=== PATIENT | female | born 1985 | race Asian ===

== ENCOUNTER 2024-06-10 06:41 | Observation (INO) | payer BC, SELFPAY ==
[2024-06-10 06:56] VITALS: BP 103/52; BMI 26.4
[2024-06-10] MEDS: LR 1000 IV ×2 (07:37→14:00)
[2024-06-10 07:51] LABS: Urine Albumin Negative (Neg - Trace); Urine Bilirubin Negative (Negative); Urine Character Clear (Clear); Urine Color Yellow; Urine Glucose Negative (Negative); Urine Ketone Negative (Negative); Urine Leukocyte Negative (Negative); Urine Nitrite Negative (Negative); Urine Occult Blood Negative (Negative); Urine Specific Gravity 1.005 (<1.030); Urine Urobilinogen Negative (Neg - 1+)
[2024-06-10 07:54] LABS: Hematocrit 27.6 % (37.0-47.0); Hemoglobin 9.8 g/dL (12.0-16.0); Mean Corp Hgb Conc. 35.5 g/dL (33.0-37.0); Mean Corpuscular Hgb 31.2 pg (27.0-31.0); Mean Corpuscular Volume 87.9 fL (81.0-99.0); Mean Platelet Volume 9.7 fL (7.4-10.4); Platelet Count 261 10^3/uL (130-400); Red Blood Cell Count 3.14 10^6/uL (4.20-5.40); Red Cell Dist. Width 12.8 % (11.5-14.5)
[2024-06-10] MEDS: CELESTONE SOLUSPAN 2 MG IM (09:35)
[2024-06-10 09:51] LABS: Amphetamines Negative (Negative); Barbiturates Negative (Negative); Benzodiazepines Negative (Negative); Buprenorphine Negative (Negative); Cocaine Negative (Negative); Marijuana Negative (Negative); Methadone Negative (Negative); Methamphetamines Negative (Negative); Opiates Negative (Negative); Phencyclidine Negative (Negative); Tricyclic Antidepressants Negative (Negative)
[2024-06-10 09:51] LABS: INR 0.95; PT 12.6 Sec (11.4-14.6)
[2024-06-10 09:52] LABS: APTT 28.5 Sec (23.4-35.0)
[2024-06-10 09:53] LABS: ALT (SGPT) 14 U/L (0-35); AST (SGOT) 22 U/L (14-36); Albumin 3.7 g/dl (3.5-5.0); Alkaline Phosphatase 115 U/L (38-126); Blood Urea Nitrogen 3 mg/dl (7-17); Calcium 8.8 mg/dl (8.4-10.2); Carbon Dioxide 23 mmol/L (22-30); Chloride 104 mmol/L (98-107); Estimated Creatinine Clearance 105 ml/min; Glucose 98 mg/dl (70-99); Potassium 3.6 mmol/L (3.5-5.1); Sodium 134 mmol/L (135-145); Total Bilirubin 0.3 mg/dl (0.2-1.3); Total Protein 6.1 g/dl (6.3-8.2); eGFR > 60.00
[2024-06-10] MEDS: TYLENOL 1000 MG PO (10:00)
[2024-06-10 10:26] LABS: Fibrinogen 571 MG/DL (199-459)
[2024-06-10] MEDS: FLUSH (NSS) 1 FLUSH IV (10:58)
[2024-06-10] MEDS: MORPHINE SULFATE 2 MG IV (10:58)
[2024-06-10] MEDS: MAGNESIUM SULFATE 100 IV (14:00)
[2024-06-10] MEDS: MAGNESIUM SULFATE 40 GRAM 1000 IV (14:26)
[2024-06-10 15:43] LABS: Hematocrit 25.4 % (37.0-47.0); Mean Corp Hgb Conc. 35.4 g/dL (33.0-37.0); Mean Corpuscular Hgb 31.3 pg (27.0-31.0); Mean Corpuscular Volume 88.2 fL (81.0-99.0); Mean Platelet Volume 9.5 fL (7.4-10.4); Platelet Count 231 10^3/uL (130-400); Red Blood Cell Count 2.88 10^6/uL (4.20-5.40); Red Cell Dist. Width 12.9 % (11.5-14.5); White Blood Cell Count 10.9 10^3/uL (4.8-10.8)
[2024-06-10 15:49] LABS: INR 1.01; PT 13.3 Sec (11.4-14.6)
[2024-06-10 15:50] LABS: Fibrinogen 539 MG/DL (199-459)
== END 2024-06-10 18:56 | disposition short-term general hospital (02) ==
LOC: LDRP 06:41
PROVIDERS: Obstetrics & Gynecology; ADMITTING PHYSICIAN Obstetrics & Gynecology; FAMILY PHYSICIAN Family Medicine
DX: R10.9 Unspecified abdominal pain (principal); O26.893 Other specified pregnancy related conditions, third trimester; Z3A.31 31 weeks gestation of pregnancy; O32.1XX0 Maternal care for breech presentation, not applicable or unspecified
CPT/HCPCS: 76705; 76815; 76816; 76817; 80053; 80306; 81003; 82731; 85027; 85384; 85460; 85610; 85730; 86850; 86900; 86901; G0378

== ENCOUNTER 2024-06-14 20:38 | Observation (INO) | payer BC, SELFPAY ==
[2024-06-14 21:13] VITALS: BMI 25.8
[2024-06-14 21:30] LABS: Hematocrit 24.7 % (37.0-47.0); Hemoglobin 8.9 g/dL (12.0-16.0); Mean Corpuscular Hgb 31.3 pg (27.0-31.0); Mean Platelet Volume 9.2 fL (7.4-10.4); Platelet Count 260 10^3/uL (130-400); Red Blood Cell Count 2.84 10^6/uL (4.20-5.40); Red Cell Dist. Width 12.7 % (11.5-14.5); White Blood Cell Count 5.2 10^3/uL (4.8-10.8)
[2024-06-14 21:42] LABS: ALT (SGPT) 34 U/L (0-35); AST (SGOT) 38 U/L (14-36); Albumin 3.5 g/dl (3.5-5.0); Alkaline Phosphatase 147 U/L (38-126); Blood Urea Nitrogen 6 mg/dl (7-17); Calcium 8.9 mg/dl (8.4-10.2); Carbon Dioxide 23 mmol/L (22-30); Chloride 105 mmol/L (98-107); Estimated Creatinine Clearance 104 ml/min; Glucose 107 mg/dl (70-99); Potassium 3.6 mmol/L (3.5-5.1); Sodium 132 mmol/L (135-145); Total Bilirubin 0.2 mg/dl (0.2-1.3); eGFR > 60.00
[2024-06-14] MEDS: REGLAN 10 MG IV (21:42)
[2024-06-14] MEDS: BENADRYL 25 MG IV (21:44)
[2024-06-14] MEDS: LR 1000 IV (21:45)
[2024-06-14 21:47] LABS: Urine Albumin Negative (Neg - Trace); Urine Bilirubin Negative (Negative); Urine Character Slightly Cloudy (Clear); Urine Color Yellow; Urine Glucose Negative (Negative); Urine Ketone Negative (Negative); Urine Leukocyte Negative (Negative); Urine Nitrite Negative (Negative); Urine Occult Blood Negative (Negative); Urine Specific Gravity 1.005 (<1.030); Urine Urobilinogen Negative (Neg - 1+)
[2024-06-14 22:00] LABS: COVID-19 Antigen Negative (Negative)
[2024-06-14 22:02] LABS: Protein/creatinine Ratio 0.8; Urine Protein 21 mg/dl
[2024-06-14 22:22] VITALS: BP 95/60
[2024-06-15] MEDS: LR 1000 IV ×2 (00:30→07:03)
[2024-06-15 05:41] LABS: ALT (SGPT) 28 U/L (0-35); AST (SGOT) 30 U/L (14-36)
[2024-06-15] MEDS: BENADRYL 25 MG IV (07:04)
[2024-06-15] MEDS: REGLAN 10 MG IV (07:04)
[2024-06-15] MEDS: FEOSOL 325 MG PO (08:00)
[2024-06-15 08:20] LABS: Iron 48 ug/dl (37-170)
[2024-06-15 08:29] LABS: Percent Saturation 12 % (20-50); Total Iron Binding Capacity 387 ug/dl (265-497)
--- NOTE | 2024-06-15 08:45 | CON.NEURO4 ---
Consultation - Neurology 4
-
CONSULTING PHYSICIAN: Freedom Mckeon
REFERRING PHYSICIAN: OB-STATE HISTORICAL SOCIETY DIRECTOR
DICTATED BY: Freedom Mckeon
DATE/TIME OF REQUEST: 06/15/24
DATE/TIME OF CONSULTATION: 06/15/24
Reason for Consultation: Headache
History of Present Illness:
Patient is a right handed 38-year-old woman at 31 weeks who presents to hospital due to headache which been present since this 06/13 on awakening.
Patient reports that this was at first a throbbing headache on the left side and she took Tylenol about 4 times a day on Saturday and Saturday had also been taking some Tylenol earlier in the week for some abdominal pains. She has had no recent head
or neck trauma. She did note some significant photophobia throughout the weekend. She did not have any other vision changes including any visual spots or color change or visual aura, nausea vomiting or phonophobia.
No recent sick contacts fevers, outdoor exposures bug bites or rashes.
She drinks about 1 cup of coffee per day.
She was given dose of Benadryl and Reglan twice now with some relief although headache has not completely abated she still has a dull persistent pain and also some instances of short lasting zap like pain which can happen bifrontally.
Relates that in the past she has relatively infrequent headaches where she will usually need to lay down in a dark room for an hour or 2, does not have accompanying nausea or vomiting or significant phonophobia or vision changes with these headaches.
So far her has been unremarkable.
Past Medical History: History of Suboxone use off for several years
Surgical History: Hernia repair, breast implants
Family History: No family history of migraines
Social History: Works as speech pathologist, lives with spouse and 1 child, no tobacco or alcohol, about 1 cup of coffee a day
Allergies: No known drug allergies
Review of Symptoms:
Patient denies any fever, chest pain, shortness of breath, GI or symptoms. Positive for headache.
Physical Exam:
Well-appearing young middle-aged woman in no distress no signs of head or neck trauma eyes are clear oropharynx is clear neck with no meningismus and full range of motion no tenderness to the scalp temporal areas or cervical spine, heart rate
regular breathing unlabored abdomen gravid, nontender, no lower extremity edema or rashes seen
Neurologic Examination:
The patient is awake, alert and oriented x 3. She is able to follow commands and answer questions appropriately. There is no aphasia or dysarthria. On cranial nerve assessment, pupils are 3 mm bilateral, round and reactive to light and
accommodation. Visual borja are full. No papilledema on fundoscopy. Extraocular movements are intact. Facial sensations are intact and bilaterally symmetrical, there is no facial asymmetry. Hearing is intact bilaterally to normal conversation
volume. Tongue palate and uvula are midline. Sternocleidomastoid strengths are full bilaterally. Motor strengths are 5/5 bilateral upper and lower extremities on medical research [place] scale. There is no drift or involuntary movement noted. Deep
tendon reflexes are 2+ bilateral upper and lower extremities and Babinski is absent bilaterally. Sensations of pain, touch, temperature and vibration are intact and bilaterally symmetrical. There was no extinction noted on double simultaneous
stimulation. Coordination is intact by finger to nose bilaterally.
Neuro Imaging: MRI pending
Impressions
1. Most likely a more severe and long-lasting migraine. In context of other considersations to keep in mind are venous sinus thrombosis, unlikely to be pre-eclampsia with normal BP's even with proteinuria seen. Normal neurologic
examination with no signs suggestive of ischemic stroke by history or exam.
2. Patient with uncomplicated so far at 31 weeks currently
3. History of infrequent mild migraine headaches without aura at baseline
Recommendations:
1. Although suspicion for other concerning etiologies of her headache is low I would still check an MRI of the brain, MRA of the head and neck and MRV without contrast given she has not had a long lasting headache like this previously in addition
to currently which broadens possible causes
2. Would give one dose 50 mg sumatriptan now and then again in 2 hours if headache still present, in general sumatriptan has good safety record and is well studied in patients with migraine
3. Tylenol is acceptable for headache but has not been very helpful
4. Small dose caffeine this morning may help
5. Otherwise conservative measures or rest, head/cold pack for headache
Discussed patient care with: Patient, OB physician
[2024-06-15 08:56] LABS: Ferritin 19.5 ng/ml (6.24-137)
[2024-06-15] MEDS: IMITREX 50 MG PO (09:58)
[2024-06-15] MEDS: HYDROCORTISONE 2.5% CREAM 1 APPLIC TOPICAL (20:32)
[2024-06-16] MEDS: FEOSOL PO ×2 (08:21→08:22)
[2024-06-16 11:37] LABS: 24 Hour Urine Total Volume 6400 ml
[2024-06-16 12:01] LABS: 24 Hour Urine Creatinine 0.659 gm/day (0.8-1.8); Urine Protein 16 mg/dl (0-12)
[2024-06-16 15:27] LABS: Transferrin 303 mg/dL (200-360)
== END 2024-06-16 13:30 | disposition home or self-care (01) ==
LOC: LDRP 20:38
PROVIDERS: ADMITTING PHYSICIAN Obstetrics & Gynecology; CONSULT PHYSICIAN Student in an Organized Health Care Education/Training Program
DX: R51.9 Headache, unspecified (principal); O99.013 Anemia complicating pregnancy, third trimester; D50.9 Iron deficiency anemia, unspecified; R19.7 Diarrhea, unspecified; R50.9 Fever, unspecified; O09.523 Supervision of elderly multigravida, third trimester; Z3A.31 31 weeks gestation of pregnancy; O12.13 Gestational proteinuria, third trimester; R11.0 Nausea; F11.21 Opioid dependence, in remission; Z98.82 Breast implant status; Z11.52 Encounter for screening for COVID-19
CPT/HCPCS: 70544; 70551; 80053; 81003; 81050; 82570; 82728; 83540; 83550; 84156; 84450; 84460; 84466; 85027; 87811

== ENCOUNTER 2024-08-02 02:10 | Inpatient (IN) | payer BC, SELFPAY ==
[2024-08-02] VITALS (14 sets, daily range): BP systolic 62–130; BP diastolic 37–59; BMI 27.5
[2024-08-02] MEDS: LR 1000 IV ×2 (02:30→03:41)
[2024-08-02] MEDS: PENICILLIN 110 UNITS IV (02:58)
[2024-08-02 03:04] LABS: % Basophils 0.3 % (0-2); % Eosinophils 0.3 % (0-6); % Immature Granulocytes 0.4 % (0-0.5); % Lymphocytes 24.3 % (20.5-51.1); % Monocytes 8.6 % (1.7-9.3); % Neutrophils 66.1 % (42.2-75.2); Absolute Lymphocytes 1.7 10^3/uL (1.2-3.4); Absolute Monocytes 0.6 10^3/uL (0.1-0.6); Absolute Neutrophils 4.7 10^3/uL (1.4-6.5); Hematocrit 30.8 % (37.0-47.0); Hemoglobin 10.9 g/dL (12.0-16.0); Mean Corp Hgb Conc. 35.4 g/dL (33.0-37.0); Mean Corpuscular Hgb 31.3 pg (27.0-31.0); Mean Corpuscular Volume 88.5 fL (81.0-99.0); Mean Platelet Volume 10.3 fL (7.4-10.4); Nucleated Red Blood Cells % 0 %; Platelet Count 221 10^3/uL (130-400); Red Blood Cell Count 3.48 10^6/uL (4.20-5.40); Red Cell Dist. Width 14.1 % (11.5-14.5); White Blood Cell Count 7.1 10^3/uL (4.8-10.8)
[2024-08-02] MEDS: SUBLIMAZE 100 MCG EPIDURAL (03:23)
[2024-08-02] MEDS: FENTANYL/BUPIVACAINE 100 EPIDURAL (03:24)
[2024-08-02] MEDS: BICITRA 30 ML PO (04:37)
[2024-08-02] MEDS: TYLENOL 1000 MG PO (04:37)
[2024-08-02] MEDS: ANCEF 10 IV (04:38)
[2024-08-02] MEDS: ZITHROMAX INFUSION 250 IV (05:00)
[2024-08-02 05:18] LABS: B.E. Cord ABG -5.5 mMOL/L; Cord ABG Comment CORD BLOOD; HCO3 Cord ABG 24.1 mmol/L; O2 Saturation % Cord ABG 9.8 %; PCO2 Cord ABG 63 mmHg; PO2 Cord ABG 6 mmHg; pH Cord ABG 7.19
[2024-08-02 05:24] LABS: B.E. Cord ABG -7.5 mMOL/L; HCO3 Cord ABG 23.1 mmol/L; O2 Saturation % Cord ABG 29.9 %; PCO2 Cord ABG 68 mmHg; PO2 Cord ABG 19 mmHg; pH Cord ABG 7.14
[2024-08-02] MEDS: MORPHINE SULFATE 2 MG IV (07:17)
--- NOTE | 2024-08-02 13:25 | OR.RPT ---
Operative Report
Operative Report
Preop diagnosis: IUP @38.4, spontaneous rupture of membranes, labor, persistent category 2 tracing, failed trial of labor after
Postop diagnosis: same
Procedure: repeat low transverse section
Surgeon: Cathie
Anesthesia: epidural Dr. Cardenas
QBL: 900mL
Findings: Viable female infant born at 0521, weighing 7lb 9.5oz, with Apgars of 7 and 8. Vacuum used delivery of with 3 pop offs. 2cm Maylard incision made on right rectus muscle to assist in delivery of infant and replacement of uterus back
into the abdomen. Normal appearing bilateral fallopian tubes and ovaries. Bladder adhered to lower uterine segment. Bladder back filled with methylene blue and no defects noted in bladder. Dense adhesions between rectus muscles.
Pascual: clear blue after procedure secondary to instillation of methylene blue into the bladder
Complications: none
Counts: correct times 2
Indication for procedure: Patient is a 38yo at 38.4 weeks who presented to Labor and Delivery with complaints of spontaneous rupture of membranes and contractions. Patient has a history of one prior section and desired a trial of
labor after section. On admission, cervical exam was 3/80/-2 and she was found to be grossly ruptured for clear fluid. Risks, benefits and alternatives to trial of labor after were discussed with patient and she desired to try for
a vaginal delivery. She requested an epidural. After epidural placement, heart tones with deceleration down to the 60-90s with intermittent improvement to 110s. Fluid bolus started and patient repositioned. FHT improved to baseline
120/moderate variability/no accelerations/+variable decelerations. At that time, cervical exam was 4/90/-2. heart rate tracing continued to have variable decelerations and cervical exam remained the same. Discussed with patient proceeding with
a repeat low transverse section for persistent category 2 tracing and remote from delivery. Risks, benefits, and alternatives were discussed with patient and her partner at bedside and all questions were answered. She was agreeable to
proceeding with section.
Procedure: Patient was taken to the operating room where epidural anesthesia was bolused and found to be adequate. 2g of Ancef and 500mg of Azithromycin were given for infection prophylaxis. The abdomen was prepped with ChloraPrep. The patient was
draped in the normal sterile fashion. She was placed in the dorsal supine position with a left lateral tilt. A Pfannenstiel incision was made through previous scar and carried down to the fascia with the Bovie. Hemostasis achieved with Bovie. The
fascia was incised and dissected laterally with Sam scissors. The superior aspect of the fascia was grasped with Doug clamps. The underlying rectus fascia was sharply dissected with Sam scissors. In a similar fashion the inferior aspect of the
fascia was elevated with Doug clamps and the rectus muscle was dissected off. The rectus muscles were noted to be densely adhered. The rectus muscles were elevated and Allis clamps and dissected down the midline with Metzenbaum scissors. The
peritoneum was elevated with hemostats and entered through a clear window with Metzenbaum scissors. At entry into the peritoneum, bladder was adhered to the lower uterine segment. The peritoneum was extended using Metzenbaum scissors and manual
traction.
Sanchez retractor and bladder blade were placed revealing good visualization of the bladder. The vesicouterine peritoneum was identified. A bladder flap was developed. A thin lower uterine segment was noted. The lower uterine segment was incised
with a scalpel. Clear fluid noted at entry into the cavity. The uterine incision was extended bluntly with lateral and upward traction.
The fetus was in cephalic presentation. The head was elevated out of the pelvis with special attention paid to avoid using the uterine incision as a fulcrum. Gentle fundal pressure was applied one the head was brought to the incision. With fundal
pressure, the head flipped to face presentation and the head was rotated back to cephalic presentation. Multiple attempts were made to deliver the fetus, but rectus muscles were noted to be too tight. Bandage scissors were used to create a 1cm
Maylard incision on the right side. A vacuum was then applied to the head to help with delivery. 3 pop offs noted. At this time, tight band of peritoneum noted superiorly on the left side and this was cut using bandage scissors. The head then
delivered through the hysterotomy and the rest of the delivered without difficulty. Delayed cord clamping was performed. The infant was handed off to the gas treater. Cord blood and cord gases were collected. IV oxytocin was started to
facilitate uterine contractions. The placenta was delivered with gentle traction and uterine fundal massage. The uterus was exteriorized. Allis clamps were placed at the apices of the hysterotomy. The inside of the uterus was wiped with a lap sponge
to assure complete removal of placental membranes. Fundal massage was performed and uterus noted to be firm. Lower uterine segment tissue noted to be edematous. Bladder also noted to be edematous. The uterine incision was closed with 0 Vicryl in a
running locked fashion. Oozing noted from the middle of the hysterotomy and a figure of eight with 0 Vicryl was placed. Oozing still noted so a vertical imbricating stitch was done on the hysterotomy. Since the bladder was adhered to the lower
uterine segment, bladder was back filled with methylene blue and no defects or spillage of methylene blue noted. Oozing noted from multiple sites of the hysterotomy. Multiple figure of eights with 2-0 Vicryl were placed to achieve hemostasis. The
hysterotomy was inspected and noted to be hemostatic. Blood clots and fluid were wiped out of the abdomen and pelvis with moist laparotomy sponges. At this time, Dr. Bermeo came to assist in the end of the case. Uterus was attempted to be placed
back in the abdomen, but was difficult secondary to enlarged uterus and tight rectus muscles. The Maylard incision on the right was extended to 2cm using Sam scissors. The uterus was placed back in the abdomen. The hysterotomy was examined again
and noted to be hemostatic.
The rectus muscle on the right side was reapproximated with 0-Vicryl with a single interrupted stitch. The rectus muscles were inspected and noted to be hemostatic. The fascial layer was closed in a running continuous fashion using 0-PDS. The
subcutaneous tissue was copiously irrigated and any small bleeding vessels were cauterized with Bovie cautery. The skin was closed with 4-0 Monocryl in a subcuticular fashion. The incision was covered with skin glue. The patient tolerated the
procedure well. All sponge and instrument counts were correct times two. The patient was taken to the recovery room in stable condition.
[2024-08-02] MEDS: MIRALAX PO (14:46)
[2024-08-02] MEDS: SENOKOT-S PO ×2 (14:46→21:10)
[2024-08-02] MEDS: PRENATAL PLUS PO (14:46)
[2024-08-02] MEDS: TORADOL 15 MG IV (14:47)
[2024-08-02 15:40] LABS: Hematocrit 19.1 % (37.0-47.0); Hemoglobin 6.5 g/dL (12.0-16.0); Mean Corp Hgb Conc. 34.2 g/dL (33.0-37.0); Mean Corpuscular Hgb 31.3 pg (27.0-31.0); Mean Corpuscular Volume 92.2 fL (81.0-99.0); Mean Platelet Volume 9.9 fL (7.4-10.4); Platelet Count 182 10^3/uL (130-400); Red Blood Cell Count 2.06 10^6/uL (4.20-5.40)
[2024-08-02 19:23] LABS: Hematocrit 23.1 % (37.0-47.0); Mean Corp Hgb Conc. 35.1 g/dL (33.0-37.0); Mean Corpuscular Hgb 30.6 pg (27.0-31.0); Mean Corpuscular Volume 87.2 fL (81.0-99.0); Mean Platelet Volume 9.9 fL (7.4-10.4); Platelet Count 149 10^3/uL (130-400); Red Blood Cell Count 2.65 10^6/uL (4.20-5.40); Red Cell Dist. Width 14.7 % (11.5-14.5); White Blood Cell Count 11.7 10^3/uL (4.8-10.8)
[2024-08-02 19:24] LABS: Hemoglobin 8.1 g/dL (12.0-16.0)
[2024-08-02 19:30] LABS: INR 1.17; PT 14.7 Sec (11.4-14.6)
[2024-08-02 19:31] LABS: APTT 26.5 Sec (23.4-35.0)
[2024-08-02 19:36] LABS: ALT (SGPT) 14 U/L (0-35); AST (SGOT) 26 U/L (14-36); Alkaline Phosphatase 78 U/L (38-126); Blood Urea Nitrogen 9 mg/dl (7-17); Calcium 7.6 mg/dl (8.4-10.2); Carbon Dioxide 19 mmol/L (22-30); Chloride 105 mmol/L (98-107); Estimated Creatinine Clearance 92 ml/min; Glucose 135 mg/dl (70-99); Potassium 4.8 mmol/L (3.5-5.1); Sodium 133 mmol/L (135-145); Total Bilirubin 0.3 mg/dl (0.2-1.3); Total Protein 3.7 g/dl (6.3-8.2); eGFR > 60.00
[2024-08-02 19:37] LABS: Fibrinogen 287 MG/DL (199-459)
[2024-08-02] MEDS: TORADOL IV (20:34)
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
[2024-08-03] VITALS (62 sets, daily range): BP systolic 74–125; BP diastolic 49–76; BMI 28.5
--- NOTE | 2024-08-03 00:07 | W.PN.UPDATE ---
Update Note
Progress Note Update
Pelvic and bilateral uterine arteriograms performed, no extravasation seen. Each side was embolized with gelfoam, a temporary agent which should last approx 2 weeks.
Patient remains hypotensive in 80's systolic.
Bedrest for 2 hours.
[2024-08-03] MEDS: MORPHINE SULFATE 2 MG IV ×5 (00:59→22:56)
[2024-08-03] MEDS: LR 1000 IV ×4 (01:04→12:07)
[2024-08-03 01:05] LABS: Hematocrit 23.4 % (37.0-47.0); Hemoglobin 8.3 g/dL (12.0-16.0); Mean Corp Hgb Conc. 35.5 g/dL (33.0-37.0); Mean Corpuscular Hgb 30.5 pg (27.0-31.0); Mean Platelet Volume 10.6 fL (7.4-10.4); Platelet Count 151 10^3/uL (130-400); Red Blood Cell Count 2.72 10^6/uL (4.20-5.40); Red Cell Dist. Width 15.3 % (11.5-14.5)
[2024-08-03 01:16] LABS: Blood Urea Nitrogen 8 mg/dl (7-17); Calcium 7.6 mg/dl (8.4-10.2); Carbon Dioxide 20 mmol/L (22-30); Chloride 105 mmol/L (98-107); Estimated Creatinine Clearance 107 ml/min; Glucose 80 mg/dl (70-99); Magnesium 1.4 mg/dl (1.6-2.3); Potassium 4.4 mmol/L (3.5-5.1); Sodium 134 mmol/L (135-145); eGFR > 60.00
[2024-08-03] MEDS: MAGNESIUM SULFATE 50 IV (02:09)
--- NOTE | 2024-08-03 02:46 | PTCARENOTE ---
Received pt from [facility] ~0100. Pt. AAOx3, MO. Remained flat x2 hrs post procedure per orders. R groin site c/d/i, soft, no hematoma noted. Neurovascular checks ongoing. Normal DP/PT pulses. SR on tele. HR 70s. BP 80s/50s. PROP SAWYER aware. Labs checked. 1
L bolus LR given then maintenance LR @ 125ml/hr started. Due to ongoing hypotension, 1 unit PRBCs ordered- awaiting arrival from lab to transfuse. No s/s bleeding. On RA, lungs CTA. Hypoactive bowel sounds. NPO. Tolerating ice chips. C section
incision approximated, no drainage. Pascual draining yellow urine. See I&O. Call skelton in reach
at bedside and updated on condition. Pt. tearful about not being able to see her baby at this time. Will coordinate with [facility] RN for pumping and care.
[2024-08-03] MEDS: LEVOPHED 250 IV (04:47)
--- NOTE | 2024-08-03 04:49 | PTCARENOTE ---
Remains hypotensive 80/50 despite PRBC transfusion. SUPERVISOR BIT AND SHANK DEPARTMENT aware of BPs throughout night. Another 1L LR bolus ordered and infusing. Levophed gtt started to maintain SBP >90. PRBCs transfused without issue. Pt. without complaints
[2024-08-03 06:22] LABS: Hematocrit 24.7 % (37.0-47.0); Hemoglobin 8.7 g/dL (12.0-16.0); Mean Corp Hgb Conc. 35.2 g/dL (33.0-37.0); Mean Corpuscular Hgb 29.6 pg (27.0-31.0); Mean Platelet Volume 10.4 fL (7.4-10.4); Platelet Count 141 10^3/uL (130-400); Red Blood Cell Count 2.94 10^6/uL (4.20-5.40); Red Cell Dist. Width 15.5 % (11.5-14.5); White Blood Cell Count 10.4 10^3/uL (4.8-10.8)
[2024-08-03 06:31] LABS: INR 1.08; PT 13.8 Sec (11.4-14.6)
[2024-08-03 06:32] LABS: APTT 25.3 Sec (23.4-35.0); Fibrinogen 355 MG/DL (199-459)
[2024-08-03 06:39] LABS: Blood Urea Nitrogen 7 mg/dl (7-17); Calcium 7.9 mg/dl (8.4-10.2); Carbon Dioxide 23 mmol/L (22-30); Chloride 107 mmol/L (98-107); Estimated Creatinine Clearance 107 ml/min; Glucose 91 mg/dl (70-99); Magnesium 1.9 mg/dl (1.6-2.3); Potassium 4.4 mmol/L (3.5-5.1); Sodium 136 mmol/L (135-145); eGFR > 60.00
--- NOTE | 2024-08-03 06:56 | W.PN.UPDATE ---
Update Note
Progress Note Update
[id number]- Updated Dr. Krystle Brand ROLLER STAINER on patient requiring vasopressor levophed gtt and transfused 1 u PRBC and IVF LR bolues for persistent hypotension. Patient having increased pain in abdomen required additional morphine total given 4mg IV.
Labs obtained and repeat hgb.
--- NOTE | 2024-08-03 07:27 | W.PN.HOSP.TC ---
Addendum entered and electronically signed by Alondra Masterson MD 08/03/24 07:59:
[facility]
Total Critical Care Time__40__ minutes. I was immediately available to the patient and staff. I personally examined, reviewed labs, diagnostic images/reports, interpretations, treatment plans, discussed patient care with other providers and
family or caregivers (if patient is unable to make decisions), entered orders as appropriate and documented the medical record.
Original Note:
Today's Communication/Plan
-
see A/P
Assessment / Plan
Assessment / Plan
HPI: 38-year-old postop status post transferred to the ICU for hemorrhagic shock.
She has a uterine hemorrhage and hemorrhage anterior to the uterus measuring approximately 5 x 21 x 15 cm and hemorrhage posterior to the uterus measuring approximately 5 x 13 x 5 cm. Hemodynamically unstable initially but improved with LR, 2 units
prbc and 3 ffp. S/P pelvic and bilateral uterine arteriograms, no extravasation seen. Each side was embolized with gelfoam, a temporary agent which should last approx 2 weeks.
Patient remains hypotensive in 80's systolic. Transferring to ICU for close monitoring.
CT AP:
1.).There is large volume hemorrhage/hematoma in the pelvis with hemorrhage anterior to the uterus measuring approximately 5 x 21 x 15 cm and hemorrhage posterior to the uterus measuring approximately 5 x 13 x 5 cm.
2). There is moderate ascites
3).The uterus is enlarged measuring approximately 21 x 12 x 15 cm
The uterus is hypervascular and the uterine and internal iliac arteries are prominent bilaterally.
There is a anterolateral branch from the left internal iliac artery which is particularly prominent but no contrast extravasation is demonstrated from this vessel to suggest active hemorrhage.
A/P:
# Hemorrhagic Shock secondary to uterine bleeding
S/P IR arteriogram and embolization.
s/p 4 units PRBC transfusion, 3 units FFP
Monitor H/H Q8 hours, transfuse for Hgb < 7
Cont current pressor Levophed for BP support
Cont IVF NSS
advance diet as tolerated
OBGYN following
[employer] CS
# Labor & Delivery s/p delivery
OBGYN following
DVT PPX - SCDs
Code Status - Full code
DW RN
Anticipated Discharge: > 48 hours
Subjective/Interval History
-
Date of Service: August 03, 2024
Objective Data
-
Labs:
Laboratory Results
08/02/24 08/02/24 08/03/24
19:13 23:55 00:01
WBC Cancelled Pending
Hgb Cancelled Pending
Hct Cancelled Pending
Plt Count Cancelled Pending
PT 14.7 H
INR 1.17
APTT 26.5
Sodium 133 L
Potassium 4.8
Chloride 105
Carbon Dioxide 19 L
BUN 9
Creatinine 0.7
Glucose 135 H
Calcium 7.6 L
Total Bilirubin 0.3
AST 26
ALT 14
Alkaline Phosphatase 78
08/03/24 08/03/24
00:48 06:13
WBC 11.0 H 10.4
Hgb 8.3 L 8.7 L
Hct 23.4 L 24.7 L
Plt Count 151 141
PT 13.8
INR 1.08
APTT 25.3
Sodium 134 L 136
Potassium 4.4 4.4
Chloride 105 107
Carbon Dioxide 20 L 23
BUN 8 7
Creatinine 0.5 L 0.6
Glucose 80 91
Calcium 7.6 L 7.9 L
Total Bilirubin
AST
ALT
Alkaline Phosphatase
Vital Signs:
Vital Signs
Temp Pulse Resp BP Pulse Ox
36.8 C 76 19 100/56 94
08/03/24 07:21 09/16/24 07:20 08/03/24 07:20 08/03/24 07:20 08/03/24 07:20
I&O
08/02/24 08/03/24 08/04/24
06:59 06:59 06:59
Intake Total 3565.0 / 3565.0
Output Total 1250 / 1250
Balance 2315.0 / 2315.0
Review of Systems
-
Abdomen/GI: Reports Abdominal Pain
Physical Exam
-
General: Well Developed, Well Nourished, No Apparent Distress, Comfortable and Conversant; Negative Respiratory Distress
HEENT: Normocephalic, Atraumatic, Nose Appears Normal and Ears Appear Normal; Negative Oxygen
Respiratory: Clear to Auscultation and Non Labored Respirations; Negative Accessory Resp Muscle Use
Cardiac: Regular Rhythm and S1/S2
GI: Soft, Nondistended, Tender and Distended
Skin: Warm and Dry
Neuro: Awake, Alert, Oriented and AO x 3
Psych: Calm and Intact Judgement/Insight
Data Reviewed
-
CT Scan: Report Reviewed by me
Labs: Labs Reviewed by me
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
--- NOTE | 2024-08-03 08:06 | W.PN.OBG.DWH ---
Today's Communication / Plan
-
Monitoring for stability of labs and status.
Keep NPO except ice chips for now.
Cont analgesia
Medical mgmt per ICU team.
OOB later if possible.
Time 40 min
Assessment/Plan
-
POD#1 s/p Repeat LTCS
Intra-abdominal bleeding. S/P UAE with improvement in vitals and urine output since.
- being weaned off levophed and stable so far.
- will need to monitor for stability of Hgb
-S/P transfusion 4 U PRBCs and 1 U FFP
- Reviewed with Diamond and her , Santiago. We need to be sure she is stabilized after UAE and explained we need to be cautious. If there are signs of continued bleeding, explained there is risk of
needed expl lap and risk for hysterectomy. BEst to try to manage conservatively if possible. They both understand risk of hysterectomy and that this would not put her into menopause. They both state they are not having any more
children.
- I spoke with ICU hospitalist as well as INTER COM SERVICER. I asked that they contact me for any concerns or changes in status, vitals, output
consult today.
I also asked Nurse online marketing manager if someone from our unit can bring baby to go see her.
Subjective Data
-
Pt seen this am. arrived while I was with Diamond. RN also in room.
Diamond reports abdominal pain. Denies SOB, CP, dizziness or lightheadedness.
Understandably upset she is away from baby.
Objective Data
-
Laboratory Results
08/03/24 06:13
Vital Signs
Temp Pulse Resp BP Pulse Ox
98.3 F 76 19 100/56 94
08/03/24 07:21 08/03/24 07:20 08/03/24 07:20 08/03/24 07:20 08/03/24 07:20
Vitals BP 104/66 when I was in room. BPs have improved. Almost weaned off levophed
Cor: regular rate
Pulm: clear b/l no R/R/W
Abdomen: distended and tender diffusely
Fundus firm, normal expected lochia-no heavy vaginal bleeding
Ext: SCDs on
Urine output over 100ml last hr, clear yellow and not concentrated
[2024-08-03] MEDS: SENOKOT-S 1 TABLET PO ×2 (08:11→21:41)
[2024-08-03] MEDS: MIRALAX PO (08:11)
[2024-08-03] MEDS: PRENATAL PLUS 1 TABLET PO (08:11)
--- NOTE | 2024-08-03 08:16 | PTCARENOTE ---
Rec'd care of patient at 0700. Patient alert and oriented. Tearful about being from baby. Emotional support and reassurance provided. Vitals stable. Levophed weaned off at 0809. IVFs infusing as ordered. NSR on tele monitor. MAEx4.
Palpable pulses. Lung sounds cta. Pulse ox 97% on RA. +BS. Abdomen round and distended. Incision site approximated and closed with surgical glue. Assessed by OBGYN. Pascual in place for I/O. Call skelton within reach.
--- NOTE | 2024-08-03 08:28 | PTCARENOTE ---
L&D RN and oracle adf consultant at bedside with patient's baby. Vitals stable. No complaints at current time.
--- NOTE | 2024-08-03 10:05 | CM ---
POD#1 s/p Repeat LTCS - PP hemorrhage. Received PRBC's and FFP
Pt seen at bedside
Reports she lives with her and 2 yo son in a 2 story home. daughter, Ralf, will also reside in home
Independent, working FT prior to admission
DME - none
No past hx HH/SNF
Has ride at discharge
PCP - Dr Merritt
Pharm - [facility]
Per new mom - has support from /family. Has supplies for including car seat and crib. Plans to breast feed - has breast pump at home. Peds for will be [facility] in [place]. PP - plans [facility].
CM will follow for discharge needs
Plan - anticipate home no needs when medically stable
--- NOTE | 2024-08-03 10:23 | W.PN.ANS.POP ---
Anesthesia Post Operative
- Anesthesia Post Op Note
Vital Signs Stable-See Nursing Note: Yes
Airway Patent: Yes
Adequate Pain Control: Yes
Change in Mental Status: No
Current Postoperative Nausea & Vomiting: No
Anesthesia Complications: No
General Anesthetic Recall: No
Unplanned Admission: No
Post Op Hydration Adequate: Yes
[2024-08-03] MEDS: PROTONIX 40 MG PO (12:07)
--- NOTE | 2024-08-03 12:16 | PTCARENOTE ---
Repeat H&H sent. Vitals remain stable off Levophed. Patient's mother at bedside. Updated on plan of care. No changes in assessment.
[2024-08-03 12:24] LABS: Hematocrit 22.8 % (37.0-47.0); Hemoglobin 8.1 g/dL (12.0-16.0)
[2024-08-03] MEDS: PERCOCET 5/325 1 TABLET PO (14:59)
--- NOTE | 2024-08-03 15:18 | W.PN.UPDATE ---
Update Note
Progress Note Update
Came to check on Diamond. Awake and conversant. Feels tired and has been sleeping a lot today. Mother is here. , Santiago is down with baby on unit.
Diamond feeling ok. Main complaint is abdominal pain. No SOB, CP or lightheadedness/dizziness.
VS: Bp 109/73 ( off pressor since this am) P 88
Urine output has been 200-250ml/hr over last several hours, clear and dilute.
Cor: regular rate, no ectopy
Pulm: clear b/l No R/R/W
Abd: soft, distended and tenderness appreciated generally. Incision clean, dry and intact
Lochia is minimal/normal
Ext: SCDs on , no edema
Hgb 8.1 @ noon ( down from 8.7) plt normal
PT/INR normal
A/P: POD#1 s/p R LTCS
Anemia from blood loss/hemoperitoneum
S/P UAE- labs seem to be stable since this am. Will repeat 6pm. Change in Hgb likely dilutional and related to equilibration.
Urine output much improved which is reassuring for hemodynamic stability.
S/P 4 U PRBCs and 1 Unit FFP.
Continue observation in ICU. Plan to repeat her H/H at 18:00. Pt anxious to go back to L&D. Would like to make sure stable enough to go.
Encourage OOB.
Ok for sips of clears for now.
Analgesia will be important.
Expectations with recovery reviewed.
Med mgmt per hospitalist.
Reviewed plan of care with Diamond, her mother and RN.
Timee 20 min
--- NOTE | 2024-08-03 15:35 | PTCARENOTE ---
Diet advanced to clears. Patient sipping on apple juice. VSS.
--- NOTE | 2024-08-03 16:10 | PTCARENOTE ---
Assessment unchanged. H&H due at 1800.
--- NOTE | 2024-08-03 16:32 | PTCARENOTE ---
Patient tolerating clears. Vegetable broth and water ice ordered for dinner. L&D RN and baby at bedside. No complaints.
[2024-08-03 17:55] LABS: Hematocrit 24.5 % (37.0-47.0); Hemoglobin 8.8 g/dL (12.0-16.0)
--- NOTE | 2024-08-03 18:13 | PTCARENOTE ---
Patient looks and verbalizes feeling better. Sitting up in bed alert. Vitals stable. NSR on tele monitor. BP 100-110's/60-70's. Repeat Hgb 8.8. Patient eager to return to L&D unit.
--- NOTE | 2024-08-03 20:18 | W.PN.UPDATE ---
Update Note
Progress Note Update
Late entry Note: Reviewed labs from 18:00
Hgb 8.8
Vitals stable BP 116/72
urine output has been 100-325ml/hr
Reviewed with Dr. Masterson and feel patient stable to return to unit on telemetry.
Dr Masterson placing orders.
--- NOTE | 2024-08-03 22:20 | PTCARENOTE ---
VSS, no changes in assessment. pt transferred to 211.
[2024-08-03] MEDS: FLUSH (NSS) 2 FLUSH IV (22:57)
[2024-08-04 00:36] LABS: Hematocrit 22.5 % (37.0-47.0); Hemoglobin 8.1 g/dL (12.0-16.0)
--- NOTE | 2024-08-04 01:00 | PTCARENOTE ---
SR-ST, HR 90s-low 100s. no ectopy noted.
[2024-08-04] MEDS: NSS (PRESERVATIVE FREE) 0.125 ML IV (01:28)
[2024-08-04] MEDS: ATIVAN 0.25 MG IV (01:29)
[2024-08-04] MEDS: FLUSH (NSS) 2 FLUSH IV ×2 (01:30→06:30)
[2024-08-04] MEDS: LR IV (02:51)
--- NOTE | 2024-08-04 06:00 | PTCARENOTE ---
no changes- SR-ST HR 90s-low 100s.
[2024-08-04] MEDS: LASIX 20 MG IV (06:26)
[2024-08-04] MEDS: PERCOCET 5/325 2 TABLET PO ×4 (06:41→20:20)
[2024-08-04 06:52] LABS: Blood Urea Nitrogen 5 mg/dl (7-17); Calcium 7.8 mg/dl (8.4-10.2); Carbon Dioxide 25 mmol/L (22-30); Chloride 105 mmol/L (98-107); Estimated Creatinine Clearance 109 ml/min; Glucose 100 mg/dl (70-99); Magnesium 1.6 mg/dl (1.6-2.3); Potassium 3.8 mmol/L (3.5-5.1); Sodium 134 mmol/L (135-145); eGFR > 60.00
[2024-08-04 06:53] LABS: Hematocrit 22.8 % (37.0-47.0); Hemoglobin 8.2 g/dL (12.0-16.0); Mean Corpuscular Hgb 30.9 pg (27.0-31.0); Platelet Count 158 10^3/uL (130-400); Red Blood Cell Count 2.65 10^6/uL (4.20-5.40); Red Cell Dist. Width 15.2 % (11.5-14.5); White Blood Cell Count 10.2 10^3/uL (4.8-10.8)
--- NOTE | 2024-08-04 07:26 | PTCARENOTE ---
Pt on telemetry monitored from ICU. Sinus rhythm. This RN walked over to maternity to assess pt per policy. Lungs CTA. Regular rate and rhythm. Pt will continued to be assessed by maternity nurse.
--- NOTE | 2024-08-04 09:24 | W.PN.HOSP.TC ---
Today's Communication/Plan
-
see A/P
Assessment / Plan
Assessment / Plan
HPI: 38-year-old postop status post transferred to the ICU for hemorrhagic shock.
She has a uterine hemorrhage and hemorrhage anterior to the uterus measuring approximately 5 x 21 x 15 cm and hemorrhage posterior to the uterus measuring approximately 5 x 13 x 5 cm. Hemodynamically unstable initially but improved with LR, 2 units
prbc and 3 ffp. S/P pelvic and bilateral uterine arteriograms, no extravasation seen. Each side was embolized with gelfoam, a temporary agent which should last approx 2 weeks.
Patient remains hypotensive in 80's systolic. Transferring to ICU for close monitoring.
CT AP:
1.).There is large volume hemorrhage/hematoma in the pelvis with hemorrhage anterior to the uterus measuring approximately 5 x 21 x 15 cm and hemorrhage posterior to the uterus measuring approximately 5 x 13 x 5 cm.
2). There is moderate ascites
3).The uterus is enlarged measuring approximately 21 x 12 x 15 cm
The uterus is hypervascular and the uterine and internal iliac arteries are prominent bilaterally.
There is a anterolateral branch from the left internal iliac artery which is particularly prominent but no contrast extravasation is demonstrated from this vessel to suggest active hemorrhage.
A/P:
# Hemorrhagic Shock secondary to uterine bleeding
S/P IR arteriogram and embolization.
s/p 4 units PRBC transfusion, 3 units FFP
Hgb now stable at around 8, monitor daily
Off pressor Levophed
Observe off additional IVF
diet advanced to regular
# Labor & Delivery s/p delivery
OBGYN
# Hypomagnesemia
# hypocalcemia
replete IV
DVT PPX - start Lovenox SQ
Code Status - Full code
DW RN
Anticipated Discharge: Within 24 hours
Subjective/Interval History
-
Date of Service: August 04, 2024
Objective Data
-
Labs:
Laboratory Results
08/04/24 08/04/24
00:08 06:08
WBC 10.2
Hgb 8.1 L 8.2 L
Hct 22.5 L 22.8 L
Plt Count 158
Sodium 134 L
Potassium 3.8
Chloride 105
Carbon Dioxide 25
BUN 5 L
Creatinine 0.5 L
Glucose 100 H
Calcium 7.8 L
Vital Signs:
Vital Signs
Temp Pulse Resp BP Pulse Ox
36.9 C 84 25 103/59 94
08/03/24 15:26 08/04/24 06:26 08/03/24 21:45 08/04/24 06:26 08/03/24 21:45
I&O
08/03/24 08/04/24 08/05/24
06:59 06:59 06:59
Intake Total 3565.0 / 3697.5 2112.5 / 2112.5
Output Total 1250 / 1475 2830 / 2830
Balance 2315.0 / 2222.5 -717.5 / -717.5
Review of Systems
-
All other systems: Reviewed and negative
Physical Exam
-
General: Well Developed, Well Nourished, No Apparent Distress, Comfortable and Conversant; Negative Respiratory Distress
HEENT: Normocephalic, Atraumatic, Nose Appears Normal and Ears Appear Normal; Negative Oxygen
Respiratory: Clear to Auscultation and Non Labored Respirations; Negative Accessory Resp Muscle Use
Cardiac: Regular Rhythm and S1/S2
GI: Soft, Tender (improved ) and Distended
Skin: Warm and Dry
Neuro: Awake, Alert, Oriented and AO x 3
Psych: Calm and Intact Judgement/Insight
Data Reviewed
-
CT Scan: Report Reviewed by me
Labs: Labs Reviewed by me
[2024-08-04] MEDS: LR 1000 IV (09:27)
[2024-08-04] MEDS: MAGNESIUM SULFATE 100 IV (09:28)
[2024-08-04] MEDS: PRENATAL PLUS 1 TABLET PO (09:36)
[2024-08-04] MEDS: FEOSOL 325 MG PO (09:36)
[2024-08-04] MEDS: PROTONIX 40 MG PO (09:37)
[2024-08-04] MEDS: SENOKOT-S 1 TABLET PO ×2 (09:37→20:09)
[2024-08-04] MEDS: VITAMIN C 500 MG PO (09:37)
[2024-08-04] MEDS: MIRALAX 17 GRAMS PO (09:37)
[2024-08-04] MEDS: CALCIUM GLUCONATE 100 IV (10:44)
[2024-08-04 11:25] LABS: Syphilis/T. pallidum Ab Reflex Negative (Negative)
[2024-08-04 12:57] VITALS: BP 102/71; BP 111/74; PULSE 84
[2024-08-04] MEDS: LOVENOX 40 MG SC (18:01)
[2024-08-04] MEDS: MYLICON 80 MG PO (22:21)
[2024-08-04] MEDS: ATIVAN 0.25 MG PO (22:21)
--- NOTE | 2024-08-05 03:03 | DOWNTIME ---
There was a [employer] Client Correspondence Section Supervisor Downtime on 08/05/2024 from 0100 to 08/05/2024 at 0300. Downtime documentation of patient's care, including medication administrations, has been reconciled in the electronic record per guidelines. Refer to the
patient's paper chart under the miscellaneous tab to see printed paper medication records and downtime forms.
[2024-08-05] MEDS: MYLICON 80 MG PO (05:05)
[2024-08-05] MEDS: PERCOCET 5/325 2 TABLET PO ×2 (05:06→22:45)
[2024-08-05 05:21] LABS: Hematocrit 26.2 % (37.0-47.0); Hemoglobin 9.3 g/dL (12.0-16.0); Mean Corp Hgb Conc. 35.5 g/dL (33.0-37.0); Mean Corpuscular Hgb 31.3 pg (27.0-31.0); Mean Corpuscular Volume 88.2 fL (81.0-99.0); Mean Platelet Volume 9.3 fL (7.4-10.4); Platelet Count 185 10^3/uL (130-400); Red Blood Cell Count 2.97 10^6/uL (4.20-5.40); Red Cell Dist. Width 14.7 % (11.5-14.5); White Blood Cell Count 9.8 10^3/uL (4.8-10.8)
[2024-08-05 05:58] LABS: Blood Urea Nitrogen 11 mg/dl (7-17); Calcium 8.1 mg/dl (8.4-10.2); Carbon Dioxide 24 mmol/L (22-30); Chloride 99 mmol/L (98-107); Estimated Creatinine Clearance 109 ml/min; Glucose 88 mg/dl (70-99); Magnesium 1.6 mg/dl (1.6-2.3); Potassium 4.1 mmol/L (3.5-5.1); Sodium 131 mmol/L (135-145); eGFR > 60.00
--- NOTE | 2024-08-05 08:21 | CM ---
Addendum entered by Mary Jane Norwood 08/05/24 08:36:
[facility]
Original Note:
Late entry from 08/04/24: CM spoke with Marla Staton from [facility], acid conditioning worker (cell: [phone]). Marla met with mother, father, and child. Per Marla, no safety plan will be implemented. Requesting discharge paperwork sent to Marla
upon discharge. CM will sent paperwork upon discharge. CM will continue to follow for all discharge planning needs.
Plan; home with family support, per [facility], no safety plan at this time.
[2024-08-05] MEDS: PRENATAL PLUS 1 TABLET PO (08:37)
[2024-08-05] MEDS: MIRALAX 17 GRAMS PO (08:37)
[2024-08-05] MEDS: SENOKOT-S 1 TABLET PO ×2 (08:37→20:49)
[2024-08-05] MEDS: VITAMIN C 500 MG PO (08:38)
[2024-08-05] MEDS: PROTONIX 40 MG PO (08:38)
[2024-08-05] MEDS: FEOSOL 325 MG PO (08:38)
[2024-08-05] MEDS: MAGNESIUM SULFATE 102 GRAMS IV (08:38)
[2024-08-05] MEDS: TYLENOL 650 MG PO ×2 (10:00→16:19)
[2024-08-05] MEDS: MOTRIN 600 MG PO ×2 (10:00→16:20)
--- NOTE | 2024-08-05 11:14 | W.PN.HOSP.TC ---
Today's Communication/Plan
-
Patient clinically stable, VSS
Hb actually improved today to 9.3
Hospitalist service will sign off
Assessment / Plan
Assessment / Plan
HPI: 38-year-old postop status post transferred to the ICU for hemorrhagic shock.
She has a uterine hemorrhage and hemorrhage anterior to the uterus measuring approximately 5 x 21 x 15 cm and hemorrhage posterior to the uterus measuring approximately 5 x 13 x 5 cm. Hemodynamically unstable initially but improved with LR, 2 units
prbc and 3 ffp. S/P pelvic and bilateral uterine arteriograms, no extravasation seen. Each side was embolized with gelfoam, a temporary agent which should last approx 2 weeks.
Patient remains hypotensive in 80's systolic. Transferring to ICU for close monitoring.
CT AP:
1.).There is large volume hemorrhage/hematoma in the pelvis with hemorrhage anterior to the uterus measuring approximately 5 x 21 x 15 cm and hemorrhage posterior to the uterus measuring approximately 5 x 13 x 5 cm.
2). There is moderate ascites
3).The uterus is enlarged measuring approximately 21 x 12 x 15 cm
The uterus is hypervascular and the uterine and internal iliac arteries are prominent bilaterally.
There is a anterolateral branch from the left internal iliac artery which is particularly prominent but no contrast extravasation is demonstrated from this vessel to suggest active hemorrhage.
A/P:
# Hemorrhagic Shock secondary to uterine bleeding
S/P IR arteriogram and embolization.
s/p 4 units PRBC transfusion, 3 units FFP
Hgb now stable, today at 9.3, monitor daily
Off pressor Levophed
Observe off additional IVF
diet advanced to regular
# Labor & Delivery s/p delivery
OBGYN
# Hypomagnesemia
# hypocalcemia
replete IV
DVT PPX - started Lovenox SQ
Code Status - Full code
Anticipated Discharge: Within 24 hours
Subjective/Interval History
-
Date of Service: August 05, 2024
Objective Data
-
Labs:
Laboratory Results
08/05/24
05:11
WBC 9.8
Hgb 9.3 L
Hct 26.2 L
Plt Count 185
Sodium 131 L
Potassium 4.1
Chloride 99
Carbon Dioxide 24
BUN 11
Creatinine 0.6
Glucose 88
Calcium 8.1 L
Vital Signs:
Vital Signs
Temp Pulse Resp BP Pulse Ox
36.9 C 84 25 103/59 94
08/03/24 15:26 08/04/24 06:26 08/03/24 21:45 08/04/24 06:26 08/03/24 21:45
I&O
08/04/24 08/05/24 08/06/24
06:59 06:59 06:59
Intake Total 2112.5 / 2112.5
Output Total 2830 / 2830
Balance -717.5 / -717.5
Review of Systems
-
All other systems: Reviewed and negative
Physical Exam
-
General: Well Developed, Well Nourished, No Apparent Distress, Comfortable and Conversant; Negative Respiratory Distress
HEENT: Normocephalic, Atraumatic, Nose Appears Normal and Ears Appear Normal; Negative Oxygen
Respiratory: Clear to Auscultation and Non Labored Respirations; Negative Accessory Resp Muscle Use
Cardiac: Regular Rhythm and S1/S2
GI: Soft and Distended
Skin: Warm and Dry
Neuro: Awake, Alert, Oriented and AO x 3
Psych: Calm and Intact Judgement/Insight
Data Reviewed
-
CT Scan: Report Reviewed by me
Labs: Labs Reviewed by me
[2024-08-05] MEDS: LOVENOX 40 MG SC (17:37)
[2024-08-05] MEDS: ATIVAN 0.25 MG PO (22:45)
[2024-08-06] MEDS: PERCOCET 5/325 2 TABLET PO ×2 (04:35→09:16)
[2024-08-06] MEDS: MYLICON 80 MG PO (04:35)
[2024-08-06 04:57] LABS: Hematocrit 23.3 % (37.0-47.0); Hemoglobin 8.3 g/dL (12.0-16.0); Mean Corp Hgb Conc. 35.6 g/dL (33.0-37.0); Mean Corpuscular Hgb 30.9 pg (27.0-31.0); Mean Corpuscular Volume 86.6 fL (81.0-99.0); Mean Platelet Volume 9.2 fL (7.4-10.4); Platelet Count 232 10^3/uL (130-400); Red Blood Cell Count 2.69 10^6/uL (4.20-5.40); Red Cell Dist. Width 14.6 % (11.5-14.5); White Blood Cell Count 7.3 10^3/uL (4.8-10.8)
[2024-08-06 05:03] LABS: Blood Urea Nitrogen 12 mg/dl (7-17); Calcium 8.1 mg/dl (8.4-10.2); Carbon Dioxide 24 mmol/L (22-30); Chloride 104 mmol/L (98-107); Estimated Creatinine Clearance 109 ml/min; Glucose 81 mg/dl (70-99); Magnesium 1.7 mg/dl (1.6-2.3); Potassium 4.2 mmol/L (3.5-5.1); Sodium 135 mmol/L (135-145); eGFR > 60.00
[2024-08-06] MEDS: FEOSOL 325 MG PO (08:07)
[2024-08-06] MEDS: MIRALAX 17 GRAMS PO (08:07)
[2024-08-06] MEDS: PRENATAL PLUS 1 TABLET PO (08:08)
[2024-08-06] MEDS: VITAMIN C 500 MG PO (08:09)
[2024-08-06] MEDS: PROTONIX 40 MG PO (08:09)
[2024-08-06] MEDS: SENOKOT-S 1 TABLET PO (08:10)
--- NOTE | 2024-08-06 12:57 | CM ---
Pt and dc to home today.
Spoke with Yamilet on Maternity floor.
As per prior CM and note [facility] Marla saw pt and family . DC with no safety plan as per [facility] .
Dc summary faxed to [facility] [phone] as requested.
--- NOTE | 2024-08-06 14:25 | W.DS.TRANS ---
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
-
Discharge Instructions:
Discharge Diagnosis/Procedures s/p Repeat (failed trial of labor),
hemorrhage, s/p blood transfusion, s/
p uterine artery embolization, anemia
Instructions:
Stand-Alone Forms: LDRP Delivery
Changes to Home Medications: No
Discharge Medications:
DC Medications w/original date entered in [employer]
Lactobacillus acidophilus 10 billion cell capsule (Probiotic) 10,000 mmu cells PO DAILY Supplement 06/21/22
prenat.vits,colt,rwr-pidw-fmirq 1 tab PO DAILY Supplement 06/21/22
sennosides 8.6 mg-docusate sodium 50 mg capsule (Senna Plus) 1 tab-cap PO BID Constipation 06/21/22
Miralax 1 packet PO DAILY Constipation 06/10/24
Super B Complex 1 tab PO DAILY Supplement 06/10/24
acetaminophen 325 mg tablet 650 mg (2 x 325 mg) PO Q4HPRN PRN mild pain #30 tabs 08/06/24
ferrous sulfate 325 mg (65 mg iron) tablet (FeroSul) 325 mg PO DAILY #30 tabs 08/06/24
ibuprofen 600 mg tablet 600 mg PO Q6HPRN PRN cramps #90 tabs 08/06/24
oxycodone 5 mg tablet 5 mg PO Q4HPRN PRN moderate pain #5 tabs 08/06/24
simethicone 80 mg chewable tablet 80 mg PO TIDPRN PRN flatulence #30 tabs 08/06/24
Home Medication Changes
Pending Results: No
--- NOTE | 2024-08-06 14:26 | W.DCSUMMARY ---
Discharge Summary
Discharge Data
Date of Admission: 08/02/24
Date of Discharge: 08/06/24
-
Pending Results: No
Hospital Course
Patient is a 38yo who presented to Labor and Delivery with complaints of spontaneous rupture of membranes and contractions. She has a history of one prior c section and desired to TOLAC. Patient was found to be grossly ruptured and 3cm. She
received an epidural and after epidural variable and late decelerations were noted on FHT. She underwent a RLTCS for NRFHTs on 08/02. During the c section there was difficulty replacing the uterus after exteriorization. Postoperative patient was
noted to be hypotensive and stat CBC was drawn. Hemoglobin was 6.3 and she was transfused 2 units of pRBCs. Following transfusion, she was still hypotensive. Stat CTA of abdomen and pelvis were ordered and 2 hematomas in the pelvis were noted, there
was no active extravasation. Given the 2 hematomas, patient underwent angiogram and uterine artery embolization by IR. Prior to the procedure she received and additional unit of pRBCs and FFP. Following the procedure, she was transferred to ICU for
further monitoring. In ICU, patient was still hypotensive and was on levophed for a brief time. She also received another unit of pRBCs for a total of 4 units pRBCs. On POD#2, patient was transferred back to . She had an episode of shortness of
breath and PE study was negative for PE. It showed small to moderate pleural effusions, mild cardiomegaly, and dependent atelectasis. She was given IV Lasix. Patient was given Ativan for help with anxiety. Patient was seen by PT for evaluation and
encouraged to get out of bed. On POD#4, patient's hemoglobin was stable and was meeting all postoperative milestones. Hemoglobin was stable, she was ambulating without dizziness or lightheadedness, tolerating a regular diet without nausea or
vomiting, voiding, and passing gas. EPDS was 12 and patient was offered zoloft which she declined. She was stable for discharge home. Discharge instructions and return precautions were discussed and all questions answered prior to discharge. She was
instructed to follow up in the office in 2 weeks.
Discharge Plan
-
Patient Disposition: Home (Routine Discharge)
Discharge Diagnosis/Procedures: s/p Repeat (failed trial of labor), hemorrhage, s/p blood transfusion, s/p uterine artery embolization, anemia
Condition: Good
Stand Alone Forms: LDRP Delivery
Referrals:
Krystle Brand, DO [Active] - in one to two weeks
UNKNOWN - PT NOT,INTERVIEWE [Family Provider] -
Prescriptions:
New
ferrous sulfate [FeroSul] 325 mg (65 mg iron) Tablet
325 mg PO DAILY Qty: 30 0RF
ibuprofen 600 mg Tablet
600 mg PO Q6HPRN PRN (Reason: cramps) Qty: 90 0RF
simethicone 80 mg Tablet,Chewable
80 mg PO TIDPRN PRN (Reason: flatulence) Qty: 30 0RF
acetaminophen 325 mg Tablet
650 mg PO Q4HPRN PRN (Reason: mild pain) Qty: 30 0RF
oxycodone 5 mg Tablet
5 mg PO Q4HPRN PRN (Reason: moderate pain) Qty: 5 0RF
Continued
prenat.vits,colt,jhd-buji-teeac Tablet
1 tab PO DAILY
Probiotic 10 billion cell Capsule
10,000 mmu cells PO DAILY
Senna Plus 8.6-50 mg Capsule
1 tab-cap PO BID
Miralax
1 packet PO DAILY
Super B Complex
1 tab PO DAILY
Discharge Orders:
Discharge Patient (As Directed); Ordered 08/06/24
Ordered By: Krystle Brand
Discharge Date and Time
Discharge Date/Time: 08/06/24 13:23
Print Language: AMHARIC
== END 2024-08-06 13:23 | disposition home or self-care (01) | DRG 786 ==
LOC: LDRP 02:10
PROVIDERS: Internal Medicine; Nurse Practitioner Family; Radiology Vascular & Interventional Radiology; ADMITTING PHYSICIAN Obstetrics & Gynecology; ATTENDING PHYSICIAN Obstetrics & Gynecology; CONSULT PHYSICIAN Student in an Organized Health Care Education/Training Program; OTHER PHYSICIAN Internal Medicine Critical Care Medicine
PROC: 30233N1 Transfusion of Nonautologous Red Blood Cells into Peripheral Vein, Percutaneous Approach (ICD-10-PCS; 2024-08-02)
PROC: 04LF3DU Occlusion of Left Uterine Artery with Intraluminal Device, Percutaneous Approach (ICD-10-PCS; 2024-08-02)
PROC: 10D00Z1 Extraction of Products of Conception, Low, Open Approach (ICD-10-PCS; 2024-08-02)
PROC: 04LE3DT Occlusion of Right Uterine Artery with Intraluminal Device, Percutaneous Approach (ICD-10-PCS; 2024-08-02)
PROC: 4A1HXCZ Monitoring of Products of Conception, Cardiac Rate, External Approach (ICD-10-PCS; 2024-08-02)
DX: O76 Abnormality in fetal heart rate and rhythm complicating labor and delivery (principal); K66.1 Hemoperitoneum; O75.1 Shock during or following labor and delivery; D62 Acute posthemorrhagic anemia; O72.1 Other immediate postpartum hemorrhage; J98.11 Atelectasis; J90 Pleural effusion, not elsewhere classified; O34.211 Maternal care for low transverse scar from previous cesarean delivery; O99.334 Smoking (tobacco) complicating childbirth; F17.200 Nicotine dependence, unspecified, uncomplicated; Z37.0 Single live birth; Z3A.38 38 weeks gestation of pregnancy; E83.42 Hypomagnesemia; E83.51 Hypocalcemia; O99.285 Endocrine, nutritional and metabolic diseases complicating the puerperium; O99.53 Diseases of the respiratory system complicating the puerperium; O99.824 Streptococcus B carrier state complicating childbirth; O99.02 Anemia complicating childbirth; O99.62 Diseases of the digestive system complicating childbirth; K58.1 Irritable bowel syndrome with constipation
CPT/HCPCS: 36246; 37244; 71045; 71275; 74174; 75625; 75736; 76377; 76937; 80048; 80053; 82803; 83735; 84100; 85014; 85018; 85025; 85027; 85384; 85610; 85730; 86780; 86850; 86900; 86901; 86920; 93005; 97163; 99152; 99153; 99406; C1769; P9016; P9059; Q9967